=== PATIENT | male | born 1985 | race African-American/Black ===

== ENCOUNTER 2019-06-12 17:34 | Emergency (ER) | payer BC, MEDICAID ==
[~2019-06-12] VITALS: Ht 172.7 cm; Wt 86.2 kg
[2019-06-12] MEDS ORDERED: PROMETHAZINE HCL 25 MG/ML 1ML ONE (17:39)
[2019-06-12] MEDS ORDERED: HYDROmorphone HCL 2 MG/ML VL ONE (17:39)
[2019-06-12] MEDS ORDERED: CEFTRIAXONE SODIUM 2 GM in D5W 5% 50 ML IV ONE (17:45)
[2019-06-12] MEDS ORDERED: PROMETHAZINE HCL 25 MG/ML 1ML IV ONE (17:45)
[2019-06-12] MEDS ORDERED: SODIUM CHLORIDE 0.9% 1,000 ML IV ONE (17:45)
[2019-06-12] MEDS ORDERED: HYDROmorphone HCL 2 MG/ML VL IV ONE (17:45)
[2019-06-12] MEDS ORDERED: IOHEXOL 300 MG/ML 100ML BOTTLE IJ ONE (17:47)
[2019-06-12] MEDS ORDERED: cefTRIAXone 1GM/50ML D5W 50 ML IV ONE ×2 (17:48→18:00)
[2019-06-12] MEDS ORDERED: metroNIDAZOLE 500MG/100ML 100 ML IV ONE ×2 (18:00→18:01)
[2019-06-12 18:15] VITALS: BP 123/79
[2019-06-12 18:24] LABS: Basophils # (auto) 0 uL; Basophils % (auto) 0.3 % (0.0-2.0); Eosinophils # (auto) 0 uL; Eosinophils % (auto) 0.4 % (0.0-7.0); Hematocrit 43.9 % (41.0-53.0); Hemoglobin 13.9 g/dL (13.5-17.5); Lymphocytes # (auto) 2.9 uL; Lymphocytes % (auto) 46.3 % (10.0-50.0); Mean Corpuscular Hemoglobin 27.7 pg (28.0-32.0); Mean Corpuscular Hgb Conc. 31.5 g/dL (32.0-36.0); Monocytes # (auto) 0.4 uL; Monocytes % (auto) 6.3 % (0.0-12.0); Neutrophils % (auto) 46.7 % (37.0-80.0); Nucleated Red Blood Cells % 0.1 %; Platelet Count (auto) 219 10^3/uL (140-450); Red Blood Cells 4.99 10^6/uL (4.5-5.90); Red Cell Distribution Width 14.7 % (11.8-14.3); White Blood Cell 6.4 10^3/uL (4.4-10.8)
[2019-06-12 18:31] LABS: Albumin 3.1 g/dL (3.4-5.0); Calcium 7.9 mg/dL (8.5-10.1); Potassium 3.5 mmol/L (3.5-5.1)
[2019-06-12 18:34] LABS: BUN/Creatinine Ratio 12.9; Bilirubin, Total 0.4 mg/dL (0.2-1.0); Total Protein 6.4 g/dL (6.4-8.2)
== END 2019-06-12 18:30 | disposition short-term general hospital (02) ==
LOC: ER 17:34
DX: S36.118A Other injury of liver, initial encounter (principal); S31.609A Unspecified open wound of abdominal wall, unspecified quadrant with penetration into peritoneal cavity, initial encounter; F17.210 Nicotine dependence, cigarettes, uncomplicated; W34.00XA Accidental discharge from unspecified firearms or gun, initial encounter; Y93.89 Activity, other specified; Y92.89 Other specified places as the place of occurrence of the external cause; Y99.8 Other external cause status
CPT/HCPCS: 36415; 36430; 71045; 71260; 74018; 74177; 80053; 85025; 86850; 86900; 86901; 86920; 96365; 96368; 96375; 99291; J0696; J1170; J2550; J3490; P9016; Q9967; J7060